=== PATIENT | female | born 1980 | race Caucasian/White ===

== ENCOUNTER 2020-01-16 11:46 | Outpatient (CLI) | payer BC, SELFPAY ==
--- NOTE | ~2020-01-16 | MM_ITS ---
EXAMINATION: MM diagnostic magalie RT w denise HISTORY: Indeterminate right breast calcifications on baseline screening mammogram TECHNIQUE: Additional 3-D tomosynthesis images of the right breast were performed and synthetic 2-D i mages were generated. Magnification views are also obtained. CAD analysis was submitted and interpret ed. COMPARISON: 12/20/2019 FINDINGS: There are regional calcifications in the upper outer quadrant of the right breast which laz ear to be amorphous on the craniocaudal view and linear in configuration on the mediolateral view, goldsmith ggestive of milk of calcium. No suspicious mass or architectural distortion is identified. IMPRESSION: 1. Probably benign right breast calcifications. 2. Recommend 6 month follow-up right diagnostic mammogram. BI-RADS category 3, probably benign findings. Reviewed, dictated and finalized at location A.
== END 2020-01-16 11:47 | disposition home or self-care (01) ==
LOC: ANHIMG 11:49
PROVIDERS: PCP Nurse Practitioner Adult Health; Visit Provider Nurse Practitioner Adult Health
DX: R92.8 Other abnormal and inconclusive findings on diagnostic imaging of breast (principal)
CPT/HCPCS: 77061; 77065; G0279